=== PATIENT | female | born 1990 | race American Indian/Alaskan Native ===

== ENCOUNTER 2018-02-19 21:52 | Emergency (ER) | payer MEDICAID ==
[2018-02-19 23:41] VITALS: BP 107/62
== END 2018-02-19 23:40 | disposition left against medical advice (07) ==
LOC: ED 21:52
DX: O20.9 Hemorrhage in early pregnancy, unspecified (principal); R10.9 Unspecified abdominal pain; Z3A.01 Less than 8 weeks gestation of pregnancy; Z53.21 Procedure and treatment not carried out due to patient leaving prior to being seen by health care provider

== ENCOUNTER 2021-03-28 03:22 | Emergency (ER) | payer MEDICAID ==
[2021-03-28] MEDS ORDERED: fentaNYL 100 MCG/2 ML INJ IV ONE (03:46)
[2021-03-28] MEDS ORDERED: ONDANSETRON 4 MG/2 ML INJ IV ONE (03:46)
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
[2021-03-28 04:21] LABS: Basophils # (Auto) 0.1 K/mm3 (0.0-0.1); Basophils % (Auto) 0.6 % (0.0-1.8); Eosinophils % (Auto) 0.1 % (0.0-4.3); Hematocrit 35.6 % (30.3-42.9); Hemoglobin 12.2 gm/dl (10.1-14.3); Lymphocytes # (Auto) 1.3 K/mm3 (1.2-5.4); Lymphocytes % (Auto) 14.2 % (13.4-35.0); Mean Corpuscular HGB Conc 34 % (30-34); Mean Corpuscular Volume 92 fl (79-97); Monocytes # (Auto) 0.6 K/mm3 (0.0-0.8); Monocytes % (Auto) 6.4 % (0.0-7.3); Platelet Count 213 K/mm3 (140-440); Red Blood Count 3.86 M/mm3 (3.65-5.03); Red Cell Distribution Width 12.9 % (13.2-15.2)
[2021-03-28 04:34] LABS: Blood Urea Nitrogen 6 mg/dL (7-17); Calcium 9.5 mg/dL (8.4-10.2); Hemolysis Index 5
[2021-03-28 04:35] LABS: BUN/Creatinine Ratio 10
--- NOTE | 2021-03-28 05:13 | Cat Scan Report ---
CT HEAD WITHOUT CONTRAST INDICATION : Headache, head injury. TECHNIQUE: Axial, coronal and sagittal CT imaging was performed from the skull apex through the skul l base without contrast. All CT scans at this location are performed using CT dose reduction for ALA RA by means of automated exposure control. COMPARISON: None available. FINDINGS: PARENCHYMA: No mass, midline shift, hemorrhage, extraaxial collection or acute territorial infarctio n. VENTRICLES: Symmetric and normal in size. SOFT TISSUES: There is a large forehead/right frontal scalp contusion. No other significant abnormal ity of the soft tissue/orbits. BONES: No acute osseous abnormality. SINUSES: No significant abnormality. ADDITIONAL FINDINGS: None. IMPRESSION: 1. No acute intracranial abnormality. 2. Large forehead/right frontal scalp contusion. Signer Name: Ari Bahena MD Signed: 03/28/2021 5:08 AM Workstation Name: [id number]
--- NOTE | 2021-03-28 05:14 | Cat Scan Report ---
CT CERVICAL SPINE WITHOUT CONTRAST INDICATION: Neck pain, head/neck injury. COMPARISON: None available. TECHNIQUE: Axial, coronal and sagittal CT imaging of the cervical spine without contrast was performe d. All CT scans at this location are performed using CT dose reduction for ALARA by means of automat ed exposure control. FINDINGS: VERTEBRAE:No acute fracture. Normal alignment. DISC SPACES: No significant abnormality. FACET JOINTS:No significant abnormality. CENTRAL CANAL: No central canal stenosis or neural foraminal narrowing. SOFT TISSUES:No significant abnormality. LUNG APICES: No significant abnormality. ADDITIONAL FINDINGS: None IMPRESSION: 1. No acute findings. Signer Name: Ari Bahena MD Signed: 03/28/2021 5:09 AM Workstation Name: [id number]
[2021-03-28] MEDS ORDERED: HYDROmorphone 1 MG/1 ML INJ IV ONE (05:27)
[2021-03-28 09:13] VITALS: BP 100/56
== END 2021-03-28 09:11 | disposition home or self-care (01) ==
LOC: ED 03:22
DX: O9A.211 Injury, poisoning and certain other consequences of external causes complicating pregnancy, first trimester (principal); Z3A.00 Weeks of gestation of pregnancy not specified; S00.83XA Contusion of other part of head, initial encounter; X58.XXXA Exposure to other specified factors, initial encounter; Y93.89 Activity, other specified; Y92.89 Other specified places as the place of occurrence of the external cause; Y99.8 Other external cause status
CPT/HCPCS: 36415; 70450; 72125; 80048; 84702; 84703; 85025; 96374; 96375; 99284; J1170; J2405; J3010; 80320; G0480

== ENCOUNTER 2021-03-29 12:04 | Emergency (ER) | payer MEDICAID ==
[2021-03-29 12:34] VITALS: BP 114/62
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
[2021-03-29] MEDS ORDERED: HYDROcodone/ACETAMINOPHEN 7.5-325MG TAB PO ONE (16:05)
== END 2021-03-29 17:41 | disposition home or self-care (01) ==
LOC: ED 12:04
DX: S09.90XD Unspecified injury of head, subsequent encounter (principal); S00.83XD Contusion of other part of head, subsequent encounter; H05.229 Edema of unspecified orbit; M54.6 Pain in thoracic spine; M25.512 Pain in left shoulder; M54.5 Low back pain; Y08.89XD Assault by other specified means, subsequent encounter
CPT/HCPCS: 70486; 99283